=== PATIENT | female | born 1990 | race Hispanic/Latino ===

== ENCOUNTER 2021-05-21 19:28 | Emergency (ER) | payer OTHER ==
[~2021-05-21] VITALS: Ht 160 cm; Wt 66.4 kg
[2021-05-21 19:28] VITALS: BP 120/74
[2021-05-21 22:27] LABS: RSV AMPLIFICATION NEGATIVE (NEGATIVE)
[2021-05-21] MEDS ORDERED: ACETAMINOPHEN 500 MG TAB PO ONE (22:55)
== END 2021-05-21 23:16 | disposition home or self-care (01) ==
LOC: M ED 19:28
DX: U07.1 COVID-19 (principal); R43.9 Unspecified disturbances of smell and taste